=== PATIENT | male | born 1980 | race Two or more races ===

== ENCOUNTER 2020-09-09 09:39 | Emergency (ER) | payer OTHER ==
[2020-09-09 09:46] VITALS: TEMP 98; BMI 34.4
[2020-09-09] MEDS ORDERED: SODIUM CHLORIDE 1,000 ML IV STA (10:41)
[2020-09-09] MEDS ORDERED: METOCLOPRAMIDE HCL INJECTION 10 MG/2 ML VIAL IVPB ONE (10:41)
[2020-09-09] MEDS ORDERED: ACETAMINOPHEN 1000 MG/100 ML VIAL (NON FORMULARY) IVPB ONE (10:41)
[2020-09-09] MEDS ORDERED: METOCLOPRAMIDE HCL INJECTION 10 MG/2 ML VIAL ONE (10:56)
[2020-09-09] MEDS ORDERED: ACETAMINOPHEN INJECTION 100 ML IVPB ONE (10:57)
[2020-09-09 11:04] LABS: EOS % 1.1 % (0-4.5); HEMATOCRIT 39.8 % (35.4-49); HEMOGLOBIN 13.6 GM/dL (11.7-16.9); LYMPH % 22.8 % (8-40); MCH 28.4 pg (25.7-33.7); MCHC 34.1 g/dl (32.0-35.9); MEAN CELL VOLUME 83.3 fl (80-96); MEAN PLT VOLUME 8.4 fl (7.5-11.1); MONO % 7.4 % (3.8-10.2); NEUT % 67.7 % (42.8-82.8); PLATELET COUNT 208 K/MM3 (134-434); RBC 4.77 M/mm3 (4.00-5.60); RDW 13.7 % (11.9-15.9); WHITE BLOOD COUNT 7.4 K/mm3 (4.0-10.0)
[2020-09-09 11:12] LABS: INR 0.88 (0.83-1.09); PROTHROMBIN TIME (PATIENT) 10.7 SEC (9.7-13.0)
[2020-09-09 11:32] LABS: BLOOD UREA NITROGEN 16.2 mg/dL (7-18); CALCIUM 9.2 mg/dL (8.5-10.1)
[2020-09-09 11:37] LABS: BILIRUBIN,TOTAL 0.4 mg/dL (0.2-1); TOT PROT 6.2 g/dl (6.4-8.2)
[2020-09-09 11:44] LABS: EPI CELLS 2 /uL (0-25.1); HYALINE CASTS 0 /uL (0-3.1); URINE APPEARANCE CLEAR; URINE BACTERIA 0 /uL (0-1359); URINE BILIRUBIN NEGATIVE (NEGATIVE); URINE COLOR YELLOW; URINE GLUCOSE (UA) 1+ (NEGATIVE); URINE KETONE NEGATIVE (NEGATIVE); URINE LEUK ESTERASE NEGATIVE (NEGATIVE); URINE NITRITE NEGATIVE (NEGATIVE); URINE PROTEIN 3+ (NEGATIVE); URINE RBC 37 /uL (0-23.9); URINE WBC 4 /uL (0-25.8)
[2020-09-09] MEDS ORDERED: LABETALOL HCL 5 MG/1 ML (100MG/20 ML VIAL) IVPUSH ONE (12:03)
[2020-09-09] MEDS ORDERED: LABETALOL HCL 5 MG/1 ML (200MG/40ML VIAL) IVPB ONE ×2 (12:13)
[2020-09-09 13:01] LABS: ANISOCYTOSIS 0; MACROCYTOSIS 0; PLATELET ESTIMATE NORMAL
[2020-09-09 14:19] VITALS: BP 143/91; PULSE 84
== END 2020-09-09 14:22 | disposition home or self-care (01) ==
LOC: JER 09:39
PROC: 3E0333Z Introduction of Anti-inflammatory into Peripheral Vein, Percutaneous Approach (ICD-10-PCS; principal; 2020-09-09)
PROC: 3E033GC Introduction of Other Therapeutic Substance into Peripheral Vein, Percutaneous Approach (ICD-10-PCS; 2020-09-09)
PROC: 3E033GC Introduction of Other Therapeutic Substance into Peripheral Vein, Percutaneous Approach (ICD-10-PCS; 2020-09-09)
PROC: 3E033GC Introduction of Other Therapeutic Substance into Peripheral Vein, Percutaneous Approach (ICD-10-PCS; 2020-09-09)
PROC: 3E0337Z Introduction of Electrolytic and Water Balance Substance into Peripheral Vein, Percutaneous Approach (ICD-10-PCS; 2020-09-09)
DX: G44.89 Other headache syndrome (principal); I10 Essential (primary) hypertension
CPT/HCPCS: 36415; 70450-TC; 80053; 81003; 85025; 85610; 93005; 93010; 99285-25; J0131

== ENCOUNTER 2020-11-29 00:27 | Emergency (ER) | payer OTHER ==
[2020-11-29 01:33] VITALS: BP 127/81; PULSE 84; TEMP 97.7; BMI 33.7
[2020-11-29] MEDS ORDERED: SODIUM CHLORIDE 1,000 ML IV STA (02:34)
[2020-11-29 04:07] LABS: HEMATOCRIT 35.3 % (35.4-49); HEMOGLOBIN 11.9 GM/dL (11.7-16.9); MCH 28.3 pg (25.7-33.7); MCHC 33.6 g/dl (32.0-35.9); MEAN CELL VOLUME 84.1 fl (80-96); MEAN PLT VOLUME 8.1 fl (7.5-11.1); PLATELET COUNT 241 K/MM3 (134-434); RDW 13.4 % (11.9-15.9); WHITE BLOOD COUNT 11.5 K/mm3 (4.0-10.0)
[2020-11-29 04:26] LABS: POTASSIUM 4.1 mmol/L (3.5-5.1)
[2020-11-29 04:28] LABS: CALCIUM 8.6 mg/dL (8.5-10.1)
[2020-11-29 04:32] LABS: CREATININE 1.2 mg/dL (0.55-1.3)
[2020-11-29] MEDS ORDERED: KETOROLAC TROMETHAMINE 30 MG/1 ML VIAL IVPUSH ONE (04:32)
[2020-11-29 04:33] LABS: BILIRUBIN,TOTAL 0.4 mg/dL (0.2-1); TOT PROT 6.1 g/dl (6.4-8.2)
[2020-11-29 04:40] LABS: URINE APPEARANCE CLEAR; URINE COLOR YELLOW
[2020-11-29 04:41] LABS: PH,URINE 5.5 (5.0-8.0); URINE BILIRUBIN NEGATIVE (NEGATIVE); URINE GLUCOSE (UA) NEGATIVE (NEGATIVE); URINE KETONE NEGATIVE (NEGATIVE)
[2020-11-29 04:42] LABS: EPI CELLS 6.2 /uL (0-25.1); HYALINE CASTS 3.85 /uL (0-3.1); URINE BACTERIA 3.8 /uL (0-1359); URINE LEUK ESTERASE NEGATIVE (NEGATIVE); URINE NITRITE NEGATIVE (NEGATIVE); URINE PROTEIN 100 (NEGATIVE); URINE RBC 12.3 /uL (0-23.9)
[2020-11-29] MEDS ORDERED: KETOROLAC TROMETHAMINE 30 MG/1 ML VIAL ONE (05:03)
== END 2020-11-29 06:05 | disposition home or self-care (01) ==
LOC: JER 00:27
PROC: 3E0333Z Introduction of Anti-inflammatory into Peripheral Vein, Percutaneous Approach (ICD-10-PCS; principal; 2020-11-29)
PROC: 3E0337Z Introduction of Electrolytic and Water Balance Substance into Peripheral Vein, Percutaneous Approach (ICD-10-PCS; 2020-11-29)
DX: R10.9 Unspecified abdominal pain (principal)
CPT/HCPCS: 36415; 71260-TC; 74177-TC; 80053; 81003; 85027; 99285-25

== ENCOUNTER 2023-04-07 12:05 | Emergency (ER) | payer OTHER ==
[2023-04-07 12:25] VITALS: PULSE 96; TEMP 98.9; BMI 31.3
[2023-04-07] MEDS ORDERED: METOCLOPRAMIDE HCL INJECTION 10 MG/2 ML VIAL IVPUSH ONE (12:47)
[2023-04-07] MEDS ORDERED: FAMOTIDINE 20 MG/50 ML IVPB 20 MG in PREMIX 50 IVPB ONE (12:47)
[2023-04-07] MEDS ORDERED: ACETAMINOPHEN 1000 MG/100 ML BAG IVPB ONE (12:47)
[2023-04-07] MEDS ORDERED: SODIUM CHLORIDE 1,000 ML IV ONE ×2 (12:47→14:05)
[2023-04-07] MEDS ORDERED: FAMOTIDINE 20 MG/50 ML IVPB 20 MG/50 ML MG IVPB ONE (12:55)
[2023-04-07] MEDS ORDERED: ACETAMINOPHEN INJECTION 100 ML IVPB ONE (12:55)
[2023-04-07] MEDS ORDERED: METOCLOPRAMIDE HCL INJECTION 10 MG/2 ML VIAL ONE (12:55)
[2023-04-07 13:37] LABS: HEMATOCRIT 48.2 % (35.4-49); HEMOGLOBIN 16.6 G/dL (11.7-16.9); MCH 28.6 pg (25.7-33.7); MCHC 34.4 g/dl (32.0-35.9); MEAN CELL VOLUME 83.1 fl (80-96); MEAN PLT VOLUME 8.3 fl (7.5-11.1); PLATELET COUNT 222.5 10^3/uL (134-434); RDW 14.2 % (11.9-15.9)
[2023-04-07 13:41] LABS: ALBUMIN 4.2 g/dl (3.4-5.0); BILIRUBIN,TOTAL 0.5 mg/dl (0.2-1); BLOOD UREA NITROGEN 21.1 mg/dl (7-18); CALCIUM 9.3 mg/dl (8.5-10.1); CREATININE 1.3 mg/dl (0.6-1.3); SGOT/AST 23.4 U/L (15-37); SGPT/ALT 17.1 U/L (7-52); TOT PROT 7.5 g/dl (6.4-8.2)
[2023-04-07 13:46] LABS: POTASSIUM 5.4 mmol/L (3.5-5.1)
[2023-04-07 13:58] LABS: EPITHELIAL CELLS RARE /hpf
[2023-04-07 14:03] LABS: PLATELET ESTIMATE ADEQUATE
[2023-04-07 14:31] LABS: VENOUS BASE EXCESS -1.2 mmol/L (-2-2); VENOUS O2 SATURATION 62.6 % (70-80); VENOUS PCO2 44.3 mmHg (38-52); VENOUS PH 7.361 (7.310-7.410)
[2023-04-07] MEDS ORDERED: LISINOPRIL 10 MG TABLET PO ONE (15:09)
[2023-04-07] MEDS ORDERED: amLODIPine BESYLATE 10 MG TABLET (FP) PO ONE (15:09)
[2023-04-07] MEDS ORDERED: LISINOPRIL 10 MG TABLET ONE (15:24)
[2023-04-07] MEDS ORDERED: amLODIPine BESYLATE 5 MG TABLET (FP) ONE (15:24)
[2023-04-07 15:58] VITALS: BP 153/97; RESP 18
== END 2023-04-07 16:13 | disposition home or self-care (01) ==
LOC: FER 12:05
PROC: 3E033GC Introduction of Other Therapeutic Substance into Peripheral Vein, Percutaneous Approach (ICD-10-PCS; principal; 2023-04-07)
PROC: 3E033GC Introduction of Other Therapeutic Substance into Peripheral Vein, Percutaneous Approach (ICD-10-PCS; 2023-04-07)
PROC: 3E033GC Introduction of Other Therapeutic Substance into Peripheral Vein, Percutaneous Approach (ICD-10-PCS; 2023-04-07)
PROC: 3E0337Z Introduction of Electrolytic and Water Balance Substance into Peripheral Vein, Percutaneous Approach (ICD-10-PCS; 2023-04-07)
PROC: 3E0337Z Introduction of Electrolytic and Water Balance Substance into Peripheral Vein, Percutaneous Approach (ICD-10-PCS; 2023-04-07)
DX: R11.2 Nausea with vomiting, unspecified (principal); R51.9 Headache, unspecified; R10.13 Epigastric pain; K21.9 Gastro-esophageal reflux disease without esophagitis
CPT/HCPCS: 36415; 80053; 81003; 81015; 82010; 82550; 82803; 82962; 83690; 84484; 85027; 93005; 99284-25